=== PATIENT | female | born 1995 | race Caucasian/White ===

== ENCOUNTER 2023-03-31 16:18 | Inpatient (IN) | payer MEDICAID, SELFPAY ==
[2023-03-31] VITALS (16 sets, daily range): BP systolic 118–133; BP diastolic 66–80; PULSE 76–103; TEMP 36.4; O2SAT 98–100
--- NOTE | 2023-03-31 18:06 | PM.OBHPLI ---
OB - H&P: HPI Labor/Induction History of Present Illness Time Seen by Provider: 18:06 Date Seen: 03/31/23 Chief Complaint: The patient is a 28 year old 3 para 2 at 39 3/7 weeks gestation by LMP c/w 10wk US, who presents for induction due to bradycardia at clinic today around 107 range. Had Routine visit today to discuss elective induction tomorrow and found to have bradycardia. There was good variability and +accels but baseline 107-110. Chief complaint: Maternity : 3 Para: 2 Date of last menstrual period: 06/28/22 Estimated date of delivery: 04/04/23 Gestational age based on last menstrual period: 39 Narrative: Osiris is a 28 year old 3 para 2 at 39 3/7 weeks gestation by LMP c/w 10wk US, who presents for induction due to bradycardia at clinic today around 107 range. Had Routine visit today to discuss elective induction tomorrow and found to have bradycardia. There was good variability and +accels but baseline 107-110. Sent to L&D for monitoring and induction. pt feels well without other sxs. no ctxs. no pain. no headache History of Present Dating criteria: based on LMP care: good care Ultrasounds: normal 1st trimester US Abnormal ultrasound findings: Prior US with polyhydramnios. Had level2 with MPP 02/07/23 with EFW 92% and mild polyhydramnios DVP 10.38. Followup US 03/08/23 EFW 82% and single deepest pocket 9. Medical complications: none Labs Blood type: B (-) negative Rubella: immune RPR/VDLR: nonreactive GBS status: negative HBsAG: negative Meds Home Medications and Allergies Allergies Allergy/AdvReac Type Severity Reaction Status Date / Time No Known Drug Allergies Allergy Verified 03/31/23 16:48 OB - H&P: Exam Physical Exam: Vital signs: Temp Pulse BP Pulse Ox 97.6 F 103 H 133/80 100 03/31/23 18:04 03/31/23 16:38 03/31/23 16:38 03/31/23 17:37 Constitutional: Constitutional: no acute distress Routine HEENT Exam: Head: Present normal inspection Routine Respiratory Exam: Respiratory: Present CTA bilaterally; Absent rhonchi or wheezes Routine Cardiovascular Exam: Cardiovascular: RRR Detailed Labor and Delivery Exam: Patient Gravid: Yes Dilation (cm): 1 Effacement (%): 50 Cervix position: posterior Consistency: medium Fetus (Single): Station: -3 Amniotic Membrane Status: intact Heart Rate Baseline: 120 Monitor Accelerations: Present Monitor Decelerations: None Shelter Variability: Moderate (6-25) Routine Extremities Exam: Extremities: Absent pedal edema Routine Neurological Exam: Present oriented X3 OB - Problem Based A/P Additional Plan (1) Term : Status: Acute (2) bradycardia: Status: Acute Plan: on NST in clinic, resolved now. Plan Cervical ripening with Cook, placed without difficulty. discussed inductions, variability and addition pitocin and SROM possible in future. All ?'s answered and pt and in agreement with plan Delivery/Labor/Induction Plan Plan: induction
[2023-03-31] MEDS: CALCIUM CARBONATE 500 MG CHEW PO (22:20)
[2023-04-01] VITALS (22 sets, daily range): BP systolic 98–146; BP diastolic 58–73; PULSE 60–98; RESP 16–20; TEMP 36.6–37.1; O2SAT 98
[2023-04-01] MEDS: LACTATED RINGERS 1000 ML 1,000 ML 125 ML IV ×2 (00:40→08:38)
[2023-04-01] MEDS: OXYTOCIN 30 unit/500 ML in NS 30 UNIT/500 ML BAG IVPB (00:50)
[2023-04-01] MEDS: LIDOCAINE 1 % PF 30 ML INJECTION (15:20)
--- NOTE | 2023-04-01 17:14 | W.PM.OBVAGDE ---
OB Procedure Vag Delivery Mother Details Mother Details: The patient is a 28 year-old, 3, Para 3, admitted on 03/31/23 at 39.4Days gestation. : 3 Para: 3 Weeks Gestation: 39.3 Admission Date: 03/31/23 Additional Details Amniotic Membrane Status: intact Amniotic Membrane Rupture Date: 04/01/23 Amniotic Membrane Rupture Time: 12:11 Amniotic Membrane Fluid Description: Clear Analgesia/Anesthesia Type: None Waterbirth: No Pitcoin: Yes Intrapartal Events: None ( bradycardia) and Labor Induction Induction Method: Intracervical balloon catheter, per pitocin protocol and AROM Labor Onset: 07:00 Complete: 14:50 Pushin:50 Heart: 2nd stage of labor showed FHT around 110-120, some early and late decels that were treated with position changes. Had good variability and occasional accels. Delivery Details Delivery Date: 04/01/23 Delivery Time: 15:07 Route of delivery: Infant Gender: Female Viability: Alive; Heart Rate Present Position at Delivery: OA Delivery Details: Patient was induced for bradycardia, mild polyhydramnios at 39.2. Had cook catheter placed on evening of 03/31. Removed early 04/01 and pitocin was titrated. AROM was done 1211 of clear fluid. Patient was 6-7 cm at that time. She progressed well. She became complete at 1450 after reducing anterior lip. She pushed effectively, and Delivered over intact perineum via spontaneous vaginal delivery at 1507. Body cord was reduced. was placed on maternal abdomen.? Cord was clamped and cut after a 30-60 second delay by family member in attendance. Nose and mouth were bulb suctioned.? weight 4015 g. Placenta was delivered spontaneously but did need ring forceps to tease trailing membranes. Evaluation of perineum showed 2nd deg laceration repaired after administration of lidocaine with 3-0 vicryl. QBL was 100. Sponge and sharp count are correct. Mom and baby are doing well at the time of this note. 1 Minute Interval Total Score: 8 5 Minute Interval Total Score: 9 Additional Details Shoulder Dystocia: No Placenta Delivery Time: 15:14 Placental Delivery Description: Spontaneous Delivery repair: Vicryl Blood Loss: 100 Laceration: Perineal - 2nd Degree Episiotomy Description: None Blood Loss Measurement Type: QBL Bakri Used: No Sponge/Need Count Correct: Yes Cord Vessel Description: 3 Vessels and Around Body Event Summary Status: Mother and infant were stable after delivery. Disposition: no change
[2023-04-01] MEDS: IBUPROFEN 600 MG TABLET PO (17:41)
[2023-04-01] MEDS: ACETAMINOPHEN 500 MG TABLET 1000 MG PO (22:41)
[2023-04-02] MEDS: IBUPROFEN 600 MG TABLET PO ×3 (01:19→13:44)
[2023-04-02 01:23] VITALS: BP 109/71; PULSE 69; RESP 16; TEMP 36.6; O2SAT 99
[2023-04-02] MEDS: ACETAMINOPHEN 500 MG TABLET 1000 MG PO ×2 (05:31→11:37)
[2023-04-02 05:32] VITALS: BP 93/53; PULSE 65; RESP 16; TEMP 36.7; O2SAT 99
[2023-04-02 06:59] LABS: Hemoglobin* 10.9 gm/dL (12.0-16.0)
[2023-04-02] MEDS: DOCUSATE SODIUM 100 MG CAPSULE PO (07:31)
[2023-04-02 08:49] VITALS: BP 110/68; PULSE 78; RESP 16; TEMP 36.7; O2SAT 99
--- NOTE | 2023-04-02 08:51 | PM.OBDSVD1 ---
DS: Providers Provider Time Seen by Provider: 08:52 Date Seen: 04/02/23 Date of admission: 03/31/23 16:18 Primary care physician: Karen Thoams MD Admitting Clinician: Debbie Zuleta MD Attending Physician on discharge: Debbie Zuleta MD Date of Discharge: 04/02/23 DS: Diagnosis Discharge Diagnosis (1) (normal spontaneous vaginal delivery): Status: Acute Problem details: Patient was induced for bradycardia, mild polyhydramnios. Had unmedicated vaginal delivery of viable female . Exam Const: Vital Signs, click to edit/add: Vital Signs - 24 hr 04/01/23 09:21 04/01/23 09:21 04/01/23 11:15 Temperature 97.9 F 97.8 F Pulse Rate 76 83 Pulse Rate [Pulse Oximeter] Respiratory Rate 16 20 Blood Pressure 129/73 134/68 Blood Pressure [Le ft Arm] [facility] 12:59 04/01/23 14:41 04/01/23 14:42 Temperature 98.3 F 98.6 F Pulse Rate 98 60 Pulse Rate [Pulse Oximeter] Respiratory Rate 20 20 Blood Pressure 146/63 H 112/71 Blood Pressure [Le ft Arm] Pulse [facility]xim[facility] 04[facility]/23 15:15 04/01/23 15:30 04/01/23 15:45 Temperature Pulse Rate 78 73 83 Pulse Rate [Pulse Oximeter] Respiratory Rate Blood Pressure 133/62 121/68 128/70 Blood Pressure [Le ft Arm] Pulse [facility]ximetry [facility] 04[facility] 15:45 04/01/23 16:00 04/01/23 16:15 Temperature 97.8 F Pulse Rate 78 78 Pulse Rate [Pulse Oximeter] Respiratory Rate 16 Blood Pressure 123/67 120/69 Blood Pressure [Le ft Arm] Pulse [facility]ximetry [facility] 04/[facility]/23 16:30 04/01/23 16:37 04/01/23 16:45 Temperature Pulse Rate 78 71 Pulse Rate [Pulse Oximeter] Respiratory Rate 16 Blood Pressure 117/73 122/71 Blood Pressure [Le ft Arm] Pulse [facility]ximetry [facility] 04[facility] 17:00 04/01/23 17:02 04/01/23 17:15 Temperature Pulse Rate 80 77 Pulse Rate [Pulse Oximeter] Respiratory Rate 16 Blood Pressure 130/60 134/70 Blood Pressure [Le ft Arm] Pulse Oximetry Oxygen Delivery Me thod 04/01/23 17:15 04/01/23 17:30 04/01/23 17:30 Temperature Pulse Rate 83 Pulse Rate [Pulse Oximeter] Respiratory Rate 16 16 Blood Pressure 119/59 L Blood Pressure [Le ft Arm] Pulse Oximetry Oxygen Delivery Me thod 04/01/23 21:00 04/02/23 01:23 04/02/23 05:32 Temperature 98.8 F 97.8 F 98.0 F Pulse Rate Pulse Rate [Pulse Oximeter] 70 69 65 Respiratory Rate 16 16 16 Blood Pressure Blood Pressure [Le ft Arm] 98/58 L 109/71 93/53 L Pulse Oximetry 98 99 99 Oxygen Delivery Me thod Room Air Room Air Room Air 04/02/23 08:49 Temperature Pulse Rate Pulse Rate [Pulse Oximeter] 78 Respiratory Rate 16 Blood Pressure Blood Pressure [Le ft Arm] 110/68 Pulse Oximetry 99 Oxygen Delivery Me thod Room Air Common normals: no apparent distress, average body habitus and oriented x3 HENMT: Common normals: normocephalic and external nose normal Head and scalp: normocephalic Nose: external nose normal Eye: Common normals: EOMs intact bilaterally Neck & C-Spine: Common normals: full ROM Resp: Common normals: normal respiratory effort Cardio: Common normals: regular rate, regular rhythm and no murmurs Rate: regular rate Rhythm: regular rhythm GI: Common normals: soft to palpation Palpation: soft Extremity: Common normals: normal to inspection and no pedal edema Neuro: Common normals: oriented x3 Skin: Common normals: no rashes or lesions noted General skin exam: no rashes or lesions noted OB - DS: Summary Hospital Course Hospital Course: The patient is a 28 year old G 3 P 3 at 39.2 weeks gestation that was admitted to the Center on 03/31/23 for IOL for bradycardia and mild polyhdramnios. She was induced with cook catheter, pitocin, AROM. Progressed well and had an uncomplicated vaginal delivery. She delivered a viable female infant. She is breast feeding. the patient has done well. Peripartum Data Infant delivery method: Vaginal Laceration description: Perineal - 2nd Degree Episiotomy description: None complications: none Gender: Female Infant Discharge Plan: Home Status at Discharge Functional status at discharge: independent ambulation Overall status at discharge: patient is back to baseline Time Spent with Patient Time attestation: Total time spent providing and/or coordinating discharge services: Time spent: Less than 30 minutes Discharge Plan Discharge Disposition: Home, Self-Care Date of Admission: 03/31/23 16:18 Attending Provider on Discharge: Debbie Zuleta Primary Care Provider: Karen Thomas I Condition: Improved Anticipated Discharge Date/Time: 04/02/23 16:00 Discharge Medications: Continued [id number] [id number] capsule 1 cap PO DAILY Discharge Orders: Discharge Order (Routine); Ordered 04/02/23 Ordered By: Debbie Zuleta Patient Education: OB Vaginal/Breast Feeding Activity Level: Activity as Tolerated Activity Detail: Pelvic rest x 6 weeks Discharge Diet: Regular Follow Up Appointments: Karen Thomas MD [Primary Care Provider] - Forms: QingKe Info Instructions Discharge Comments: Follow up for visit with Dr. Claudio on Wednesday 04/11 at 0845
[2023-04-02 11:58] VITALS: BP 114/76; PULSE 74; RESP 16; TEMP 36.7; O2SAT 98
== END 2023-04-02 16:48 | disposition home or self-care (01) | DRG 807 ==
PROVIDERS: Family Medicine; Admitting Provider Family Medicine; PCP Family Medicine; Visit Provider Family Medicine
DX: O76 Abnormality in fetal heart rate and rhythm complicating labor and delivery (principal); Z37.0 Single live birth; O70.1 Second degree perineal laceration during delivery; Z3A.39 39 weeks gestation of pregnancy; O40.3XX0 Polyhydramnios, third trimester, not applicable or unspecified
CPT/HCPCS: 36415; 76815; 85018; 85461; A9270; C1726; J2001; J2791; J7120